=== PATIENT | female | born 1945 | race Caucasian/White ===

== ENCOUNTER → 2023-05-29 13:43 | Outpatient (REF) | payer OTHER, SELFPAY | LOC: HWWDC 13:43 | PROVIDERS: ATTENDING PHYSICIAN Physician Assistant | DX: Z12.31 Encounter for screening mammogram for malignant neoplasm of breast (principal) | CPT/HCPCS: 77063; 77067 ==

== ENCOUNTER → 2023-06-05 10:07 | Outpatient (REF) | payer OTHER, SELFPAY | LOC: WDC 10:07 | PROVIDERS: ATTENDING PHYSICIAN Physician Assistant | DX: R92.8 Other abnormal and inconclusive findings on diagnostic imaging of breast (principal) | CPT/HCPCS: 77065 ==

== ENCOUNTER → 2023-06-17 07:05 | Outpatient (REF) | payer OTHER, SELFPAY ==
--- NOTE | 2023-06-17 11:04 | OID.BR.INTR ---
[facility] Navigator - Initial
- -
Date of Contact: 06/17/23
Met with patient. Patient given written information on navigator services and support services available at [facility]. Will follow up as needed per protocol.
== END ==
LOC: WDC 07:05
PROVIDERS: ATTENDING PHYSICIAN Physician Assistant; FAMILY PHYSICIAN Family Medicine
DX: N63.20 Unspecified lump in the left breast, unspecified quadrant (principal)
CPT/HCPCS: 88305; 19081; 76098; 88341; 88342; 88360; A4648

== ENCOUNTER → 2023-07-17 08:03 | Outpatient (REF) | payer OTHER, SELFPAY | LOC: WDC 08:03 | PROVIDERS: ATTENDING PHYSICIAN Surgery; FAMILY PHYSICIAN Family Medicine | DX: D05.92 Unspecified type of carcinoma in situ of left breast (principal) | CPT/HCPCS: 19281; A4648 ==

== ENCOUNTER 2023-07-18 06:05 | Day surgery (SDC) | payer OTHER, SELFPAY ==
[2023-07-04 12:52] VITALS: BMI 44.9
[2023-07-04 13:50] LABS: Hematocrit 38.3 % (37.0-47.0); Hemoglobin 12.9 g/dL (12.0-16.0); Mean Corp Hgb Conc. 33.7 g/dL (33.0-37.0); Mean Corpuscular Hgb 30.8 pg (27.0-31.0); Mean Corpuscular Volume 91.4 fL (81.0-99.0); Mean Platelet Volume 9.9 fL (7.4-10.4); Platelet Count 261 10^3/uL (130-400); Red Blood Cell Count 4.19 10^6/uL (4.20-5.40); Red Cell Dist. Width 13.2 % (11.5-14.5)
[2023-07-04 14:13] LABS: ALT (SGPT) 30 U/L (0-35); AST (SGOT) 27 U/L (14-36); Albumin 4.3 g/dl (3.5-5.0); Alkaline Phosphatase 65 U/L (38-126); Blood Urea Nitrogen 24 mg/dl (7-17); Calcium 10.1 mg/dl (8.4-10.2); Carbon Dioxide 27 mmol/L (22-30); Chloride 99 mmol/L (98-107); Estimated Creatinine Clearance 52 ml/min; Glucose 114 mg/dl (70-99); Potassium 4.4 mmol/L (3.5-5.1); Sodium 134 mmol/L (135-145); Total Bilirubin 0.5 mg/dl (0.2-1.3); Total Protein 7.1 g/dl (6.3-8.2); eGFR 46.62
[2023-07-04 14:19] LABS: Prealbumin (Transthyretin) 26.8 mg/dl (17.6-36.0)
[2023-07-04 14:32] LABS: Vitamin D, 25-OH*** 75.2 ng/mL (30-80)
--- NOTE | 2023-07-07 14:59 | PTCARENOTE ---
Abnormal EKG on 07/04/23. Dr. Arevalo aware. No intervention needed.
[2023-07-18 06:18] VITALS: BMI 43.5
[2023-07-18 06:20] VITALS: BP 130/51
[2023-07-18 06:35] LABS: Glucose - Point of Care 127 mg/dl (70-99)
[2023-07-18] MEDS: LOVENOX 40 MG SC (06:38)
[2023-07-18] MEDS: TYLENOL 1000 MG PO (06:42)
[2023-07-18] MEDS: NORMOSOL-R 1000 IV (07:00)
[2023-07-18 08:40] VITALS: BP 112/44
[2023-07-18 08:55] VITALS: BP 94/50
[2023-07-18 08:58] LABS: Glucose - Point of Care 121 mg/dl (70-99)
[2023-07-18 09:10] VITALS: BP 116/50
[2023-07-18 09:20] VITALS: BP 136/74
== END 2023-07-18 09:32 | disposition home or self-care (01) ==
LOC: SDS 06:05
PROVIDERS: ATTENDING PHYSICIAN Surgery; FAMILY PHYSICIAN Family Medicine
DX: C50.912 Malignant neoplasm of unspecified site of left female breast (principal); Z17.0 Estrogen receptor positive status [ER+]
CPT/HCPCS: 19301; 88305; 88307; 36415; 76098; 80053; 82306; 82962; 84134; 85027; 88341; 88342; 88360; 93005; A4648

== ENCOUNTER → 2023-08-13 12:12 | Outpatient (REF) | payer OTHER, SELFPAY ==
[2023-08-13 14:25] LABS: ALT (SGPT) 28 U/L (0-35); AST (SGOT) 27 U/L (14-36); Albumin 4.7 g/dl (3.5-5.0); Alkaline Phosphatase 77 U/L (38-126); Blood Urea Nitrogen 26 mg/dl (7-17); Calcium 10.4 mg/dl (8.4-10.2); Carbon Dioxide 21 mmol/L (22-30); Chloride 102 mmol/L (98-107); Glucose 115 mg/dl (70-99); HDL Cholesterol 96 mg/dl; LDL Cholesterol, Calculated 91 mg/dl; Potassium 4.6 mmol/L (3.5-5.1); Sodium 136 mmol/L (135-145); Total Bilirubin 0.5 mg/dl (0.2-1.3); Total Cholesterol 218 mg/dl (50-199); Total Protein 7.7 g/dl (6.3-8.2); Triglyceride 157 mg/dl (10-149); Very Low Density Lipoprotein 31 mg/dl (0-30); eGFR 42.35
[2023-08-13 14:40] LABS: Free T4 1.75 ng/dl (0.78-2.19)
== END ==
LOC: REG 12:12
PROVIDERS: ATTENDING PHYSICIAN Nuclear Medicine Nuclear Cardiology
DX: I10 Essential (primary) hypertension (principal); Z79.899 Other long term (current) drug therapy
CPT/HCPCS: 36415; 80053; 80061; 84439; 84443

== ENCOUNTER → 2023-08-15 12:31 | Outpatient (REF) | payer OTHER, SELFPAY | LOC: HWRAD 12:31 | PROVIDERS: ATTENDING PHYSICIAN Obstetrics & Gynecology; FAMILY PHYSICIAN Family Medicine; OTHER PHYSICIAN Internal Medicine Hematology & Oncology; REFERRING PHYSICIAN Nuclear Medicine Nuclear Cardiology | DX: I10 Essential (primary) hypertension (principal); Z79.899 Other long term (current) drug therapy; Z78.0 Asymptomatic menopausal state | CPT/HCPCS: 71046; 77080 ==

== ENCOUNTER 2023-10-22 11:19 | Inpatient (IN) | payer OTHER, SELFPAY ==
[2023-10-21] VITALS (8 sets, daily range): BP systolic 104–213; BP diastolic 54–82; BMI 43.7
--- NOTE | 2023-10-21 12:05 | EDRN ---
Pt not cooperating with blood draw, unable to get the ordered labs other than the nasal swabs/
[2023-10-21 12:35] LABS: COVID-19 Antigen Positive (Negative)
--- NOTE | 2023-10-21 12:50 | ED.GENMED ---
History of Present Illness
General
Chief Complaint: Cold/Flu/URI Symptoms
Source: patient
Exam Limitations: none
Time Seen by Provider: 10/21/23 12:36
History of Present Illness
History of Present Illness:
Patient complaining of general pain aches some increased shortness of breath since yesterday. positive with a viral syndrome. Some slight cough. No sputum. Symptoms are moderate in nature. Complaining of significant weakness.
Past History
Past History
ED Past Medical History: Arrthythmia (Atrial fibrillation), GERD, HTN, Hypercholesterolemia, NIDDM, Hypothyroidism and Other (Obesity, Sleep apnea uses C-pap at home,m Cystitis)
ED Past Surgical History: Appendectomy, Cholecystectomy, Gynecological, Orthopedic (Right and left hip replacement, right knee replacement) and Tonsilectomy
Social History
Tobacco: Former smoker
Alcohol: None
Personal:
Living: with family
Employment: Retired
Family History
Family History: Other (Cancer)
Review of Systems
Review of Systems
All Other Systems: Not applicable
Constitutional: Reports fever and chills
Respiratory: Reports cough and trouble breathing
Cardiac: Reports no symptoms
Phy Exam
Physical Exam
Physical Exam:
GENERAL: Alert and oriented in no apparent distress. Generally weak
EYE: Orbits normal.
NECK: Supple
ENT: Pharynx without erythema
CARDIAC: Regular rate and rhythm without any obvious murmurs.
LUNGS: Decreased breath sounds diffusely. Occasional dry cough. Dry bibasilar rales at times
ABDOMEN: Soft, without focal tenderness or distention. Elevated BMI
NEUROLOGICAL: Alert and oriented , grossly non-focal
SKIN: Warm and dry, no rash or lesion, no discoloration, skin intact.
MUSCULOSKELETAL: No edema,no deformity.Good color
PSYCH: Normal and appropriate interaction.
Course
Orders/Labs/Results
Orders:
Orders
10/21/23 11:48
Electrocardiogram (*1) Urgent
Reason for Study: Other
Other Reason for Exam: Possible Sepsis
Cardiac Monitoring- Treatment ONCE
IV Insert/Care/Rem.- Treatment PRN
O2 Therapy [RESP] Urgent
Titrate/Wean O2 to maintain O2 sat greater than (%): 93
Special Instructions: TO MAINTAIN CONTINUOUS O2 SATS > OR = 93%
Pulse Ox/cont/shift [RESP] Urgent
Quantity: 1
Special Instructions: CONTINUOUS
10/21/23 11:49
EKG- Treatment ONCE
10/21/23 11:56
COVID-19 Antigen Urgent
Source: Nasal Swab
Influenza A+B Rapid Molecular Urgent
MAYNOR Source: Nasal Swab
Specimen Description:
10/21/23 12:45
Acetaminophen [Tylenol] 1,000 mg PO NOW STA
CXR Port [CR Chest Portable - 1 View] Urgent
Comment:
Reason For Exam: sob. covid pos
Reason Study Needs to be Portable: Other
10/21/23 12:46
0.9% Sodium Chloride 500 ml [Nss] 500 ml IV BOLUS
10/21/23 12:57
Complete Blood Count/With Diff Urgent
Lactic Acid Q4H
Comment: ON ICE, CANCEL 2ND ORDER IF FIRST LACTIC ACID LEVEL <2
10/21/23 14:16
Comprehensive Metabolic Panel Routine
10/21/23 15:32
Admit/Transfer Patient As Directed
Co-Sign Provider:
Level of Care: Observation services
Assign to:: Medical/Surgical
Physician / Group: Carter Miguel
Diagnosis: COVID 19 viral infection, Weakness
PRN Pain Medication Management As Directed
May give lesser potent ordered pain med per pt: Yes
preference::
Protocol:: Medication orders for pain may be administered in a
manner that supports deferring to patient preference
when the pt is:
- Requesting an ordered lesser potent pain medication.
Least to most potent pain medications are defined
as: acetaminophen < NSAID < tramadol < opioids
(morphine, oxycodone, hydromorphone).
- Requesting a lesser dose of the same medication IF
ORDERED.
- Requesting a less intrusive route of administration
if both routes are prescribed by the provider (PO <
IV).
10/21/23 15:36
Code Status As Directed
Resuscitation Status: Full Code
10/21/23 15:59
Lactic Acid Q4H
Comment: ON ICE, CANCEL 2ND ORDER IF FIRST LACTIC ACID LEVEL <2
10/21/23 16:25
Dextrose 50%-Water [Dextrose 50% Syringe] 12.5 grams IV [id number] PRN
Glucagon [GlucaGen] 1 mg IM PRN PRN
Guaifenesin/Dextromethorphan [Robitussin Dm] 10 ml PO Q4HPRN PRN
10/21/23 16:25
Activity As Directed
Activity Level: With Assistance
Bedside Glucose Monitoring As Directed
Frequency: AC&HS
Additional Instructions:: Change to q6h if pt on TPN, tube feeding or not eating
Intake/ Output As Directed
Frequency: Per unit guidelines
Precautions As Directed
Type of Precautions: Droplet
Contact
Vital Signs As Directed
Frequency: Per unit guidelines
Weight As Directed
Frequency: Once
Comment: on admission
Pulse Ox/cont/shift [RESP] Routine
Quantity: 1
Special Instructions: continuous pulse oximetry
Ot Eval And Treat Routine
Pt Eval And Treat Routine
Activity Level: With Assistance
10/21/23 16:30
Insulin Aspart Corrective Low [Novolog Flexpen-Low Resistance] See Protocol SC AC
10/21/23 17:00
METFORMIN HCl [Glucophage] 500 mg PO BID AT 0800,1700
Metoprolol [Lopressor] 50 mg PO BID AT 0800,1600
10/21/23 18:00
Rivaroxaban [Xarelto] 20 mg PO QPM
10/21/23 19:00
Acetaminophen [Tylenol] 650 mg PO Q4HPRN PRN
10/21/23 20:00
HydrALAZINE [Apresoline] 50 mg PO BID
Nirmatrelvir/Ritonavir [Paxlovid 2X150 mg-100 mg Dose Pack] 1 dose PO BID
10/21/23 22:00
Atorvastatin [Lipitor] 10 mg PO HS
Losartan [Cozaar] 100 mg PO HS
Melatonin 10 mg PO HS
Metoprolol [Lopressor] 25 mg PO HS
10/22/23 06:00
Basic Metabolic Panel IN AM
Complete Blood Count/With Diff IN AM
Glycohemoglobin (HgbA1c) IN AM
Levothyroxine [Synthroid] 100 mcg PO DAILY @ 0600
10/22/23 08:00
Cholecalciferol (Vitamin D3) [VITAMIN D3 (cholecalciferol)] 125 mcg PO DAILY
Cyanocobalamin [Vitamin B-12] 5,000 mcg PO Q72H
Furosemide [Lasix] 40 mg PO DAILY
Zinc Sulfate 220 mg PO DAILY
10/22/23 12:00
Amiodarone [Pacerone] 100 mg PO NOON
Qoowxgkqq-Qtv-Cbzm [Femara] 2.5 mg PO NOON
Potassium Chloride [KCl] 20 meq PO NOON
10/23/23 06:00
Basic Metabolic Panel IN AM
Complete Blood Count/With Diff IN AM
Abnormal Lab Results
10/21/23 10/21/23 10/21/23
11:56 12:57 14:16
RBC 4.19 L 10^6/uL
(4.20-5.40)
Absolute Neuts (auto) 8.0 H 10^3/uL
(1.4-6.5)
Absolute Lymphs (auto) 0.7 L 10^3/uL
(1.2-3.4)
Neutrophils % 84.9 H %
(42.2-75.2)
Lymphocytes % 7.3 L %
(20.5-51.1)
Sodium 134 L mmol/L
(135-145)
BUN 23 H mg/dl
(7-17)
Creatinine 1.1 H mg/dL
(0.6-1.0)
Glucose 118 H mg/dl
(70-99)
Lactic Acid 2.6 H mmol/L
(0.7-2.0)
SARS-CoV-2 Antigen Positive A
(Negative)
10/21/23 12:57
10/21/23 14:16
Vital Signs
Initial and Last Documented VS:
Initial Vital Signs
Temp Pulse Resp BP Pulse Ox
100.5 F H 87 18 213/82 93
10/21/23 11:44 10/21/23 11:44 10/21/23 11:44 10/21/23 11:44 10/21/23 11:44
Last Documented Vital Signs
Temp Pulse Resp BP Pulse Ox
98.3 F 75 20 182/69 94
10/21/23 19:08 10/21/23 19:08 10/21/23 19:08 10/21/23 19:08 10/21/23 19:08
*Radiology
Radiology exam reviewed: preliminary read by ED provider (Negative) and radiology read reviewed (Negative)
*Pulse Oximetry
Patient hypoxic: no
*Critical Care Note
Total Time (30-74mins, 75-104mins- exclusive of procedures): Not Applicable
Data Reviewed
Review of Other/Old Records Reveals: Labs and Records
Update Note
Update Note:
Patient clinically stable and nontoxic. However generally very weak. Does not feel she can handle issues at home given her severe weakness. Will be admitted for further care
ED Attending Note
-
Portions of this chart may have been created with voice recognition software.� Occasional wrong word or��sound alike� substitutions may have occurred due to the inherent limitations of voice recognition software.
Discharge Plan
Departure
Patient Disposition: Admit
Date of Disposition: 10/21/23
Time of Disposition: 14:33
Presentation/result/management discussed w/ accepting MD/DO: Hospitalist
Discharge Problem:
COVID infection COVID infection, Severe weakness, Multiple medical issues
Interventions
Interventions:
*Risk Screen - Suicide Last Done: 10/21/23 11:44
*General Assessment Last Done: 10/21/23 11:44
*Neglect/Abuse Screening Last Done: 10/21/23 11:44
ED- Fall Risk Assessment Last Done: 10/21/23 15:00
*ED COVID-19 Vaccine History Last Done: 10/21/23 16:26
*Nursing Disposition Last Done: 10/21/23 16:26
ED- Pulmonary Assessment Last Done: 10/21/23 12:50
Discharge Date and Time
Discharge Date/Time: 10/21/23 16:26
[2023-10-21] MEDS: TYLENOL 1000 MG PO (13:00)
[2023-10-21 13:16] LABS: % Basophils 0.5 % (0-2); % Eosinophils 0.3 % (0-6); % Immature Granulocytes 0.4 % (0-0.5); % Lymphocytes 7.3 % (20.5-51.1); % Monocytes 6.6 % (1.7-9.3); % Neutrophils 84.9 % (42.2-75.2); Absolute Basophils 0.1 10^3/uL (0-0.2); Absolute Lymphocytes 0.7 10^3/uL (1.2-3.4); Absolute Monocytes 0.6 10^3/uL (0.1-0.6); Hematocrit 37.6 % (37.0-47.0); Hemoglobin 12.9 g/dL (12.0-16.0); Mean Corp Hgb Conc. 34.3 g/dL (33.0-37.0); Mean Corpuscular Hgb 30.8 pg (27.0-31.0); Mean Corpuscular Volume 89.7 fL (81.0-99.0); Mean Platelet Volume 9.9 fL (7.4-10.4); Nucleated Red Blood Cells % 0 %; Platelet Count 265 10^3/uL (130-400); Red Blood Cell Count 4.19 10^6/uL (4.20-5.40); Red Cell Dist. Width 13.4 % (11.5-14.5); White Blood Cell Count 9.4 10^3/uL (4.8-10.8)
[2023-10-21 13:29] LABS: Lactic Acid 2.6 mmol/L (0.7-2.0)
[2023-10-21] MEDS: NSS 500 IV (13:36)
--- NOTE | 2023-10-21 13:56 | EDRN ---
this CENTER DIRECTOR LEAD TEACHER contacted lab due to this pts ordered CMP not showing received by lab via [facility] even though all blood tubes were collected and sent to lab at the same time in the SAME Biohazard bag. Per educational technologist, the pts CMP blood tube could not be
located and new labs will need to be redrawn. the pt was a difficult stick and has already been stuck once in ER triage, twice by this CENTER DIRECTOR LEAD TEACHER, and once by IV team RN. Now, due to lab not being able to locate this pts blood tube, the pt will have to
be stuck again to obtain ordered CMP. this CENTER DIRECTOR LEAD TEACHER notified ER Director and ER Dr Lowe were of above.
[2023-10-21 14:50] LABS: ALT (SGPT) 25 U/L (0-35); AST (SGOT) 28 U/L (14-36); Albumin 4.3 g/dl (3.5-5.0); Alkaline Phosphatase 59 U/L (38-126); Blood Urea Nitrogen 23 mg/dl (7-17); Calcium 9.5 mg/dl (8.4-10.2); Carbon Dioxide 24 mmol/L (22-30); Chloride 102 mmol/L (98-107); Estimated Creatinine Clearance 55 ml/min; Glucose 118 mg/dl (70-99); Potassium 4.2 mmol/L (3.5-5.1); Sodium 134 mmol/L (135-145); Total Bilirubin 0.6 mg/dl (0.2-1.3); Total Protein 6.7 g/dl (6.3-8.2); eGFR 51.75
--- NOTE | 2023-10-21 15:31 | HPS.HSE ---
Addendum entered and electronically signed by Carter Miguel MD 10/22/23 08:45:
Paxlovid was discontinued after discussion with pharmacy for as Paxlovid can cause increased Amiodarone level causing QTc prolongation/cardiac athymias/AV block
Patient switched to IV dexamethasone 6mg/d instead.
Original Note:
Family Physician
-
Family Physician: Bravo Isidro
Chief Complaint
-
Shortness of breath, generalized weakness
History of Present Illness
Patient is 77-year-old female with past medical history of left breast cancer status postmastectomy on tamoxifen/letrozole therapy, paroxysmal h atrial fibrillation, diastolic heart failure, essential hypertension, hyperlipidemia,
xuq-cvrcley-wznwxgiyj diabetes mellitus, hypothyroidism, obesity, sleep apnea not compliant to CPAP, history of appendectomy/cholecystectomy, bilateral hip replacement came to ER for having new onset of shortness of breath and generalized weakness.
Patient from Friday feeling unwell and having some sore throat/generalized body ache and slowly started to developing dyspnea. Patient had somewhat of similar symptoms in spouse is worried about having COVID/flu. Patient came to ER for further
assessment as symptoms are progressing and was tested positive for COVID. Patient able to walk around although balance severely off and at points noted to be falling backward in ER. Patient also visibly dyspneic although not hypoxic. Reported
some nonproductive cough. No fever noted. Patient was also having some nausea although no vomiting diarrhea.
Medical History
Past Medical History
Past Medical History: Reports Other
Additional Past Medical History:
left breast cancer status postmastectomy on tamoxifen/letrozole therapy, paroxysmal h atrial fibrillation, diastolic heart failure, essential hypertension, hyperlipidemia, uks-jtzrppm-rhnqcxnhj diabetes mellitus, hypothyroidism, obesity, sleep apnea
not compliant to CPAP, history of appendectomy/cholecystectomy, bilateral hip replacement
Past Surgical History: Reports Other
Social History
Tobacco: Former Smoker
Alcohol: None
Drug: None
Personal:
Living: With Family
Family History
Family History: Not pertinent
Allergies / Home Medications
Allergies reflects when Allergies were last updated in [facility].
Home Medications with original date entered in [facility]
Allergy/Medication List:
Allergies
Allergy/AdvReac Type Severity Reaction Status Date / Time
adhesive Allergy Rash Verified 10/21/23 11:48
alcohol Allergy SNEEZE Verified 10/21/23 11:48
banana [Banana] Allergy THROAT Verified 10/21/23 11:48
SWELLS,EYES
TEAR
milk Allergy THROAT Verified 10/21/23 11:48
SWELLS,EYES
TEAR
wheat Allergy THROAT Verified 10/21/23 11:48
SWELLS,EYES
TEAR
azithromycin AdvReac Nausea Verified 10/21/23 11:48
Grapes Allergy Throat Uncoded 07/18/23 06:09
swelling
vinegar Allergy cough,sneeze.'attacks Uncoded 07/18/23 06:09
throat'
Home Medications
levothyroxine 100 mcg tablet 100 mcg PO DAILY Thyroid 07/19/12
metformin 500 mg tablet 500 mg PO BIDWMEAL Diabetes 07/19/12
rivaroxaban 20 mg tablet (Xarelto) 20 mg PO QPM Blood clot prevention/tx 12/10/18
biotin 1 mg tablet 1 mg PO DAILY Supplement 05/25/19
furosemide 40 mg tablet 40 mg PO DAILY Fluid retention/Swelling 05/25/19
melatonin 10 mg tablet 10 mg PO HS 05/25/19
losartan 50 mg tablet 100 mg PO HS Blood pressure 01/28/21
metoprolol tartrate 50 mg tablet 50 mg PO BID Heart disease/condition 01/28/21
hydralazine 25 mg tablet 50 mg PO BID 07/22/21
Celery Seed 3 tab PO DAILY 07/11/23
L-Glutathione 1 tab PO DAILY 07/11/23
Marshmallow Root 1 tab PO DAILY 07/11/23
Jewell 3 2 cap PO DAILY 07/11/23
Women Prebiotic With Cranberry 2 tab PO DAILY 07/11/23
cholecalciferol (vitamin D3) 125 mcg (5,000 unit) tablet (Vitamin D3) 125 mcg PO DAILY 07/11/23
keratin 1 dose PO DAILY 07/11/23
vitamin K2 100 mcg capsule 100 mcg PO DAILY 07/11/23
amiodarone 100 mg tablet 100 mg PO NOON 10/21/23
calcium carbonate,citrate-magnesium oxide 200 mg calcium-50 mg tablet (CalMag Thins) 1 tab PO HS 10/21/23
clotrimazole-betamethasone 1 %-0.05 % topical cream 1 applic topical BIDPRN PRN vaginal 10/21/23
cyanocobalamin (vitamin B-12) 5,000 mcg sublingual tablet 5,000 mcg sublingual Q72H 10/21/23
letrozole 2.5 mg tablet 2.5 mg PO NOON 10/21/23
magnesium oxide 200 mg PO DAILY 10/21/23
metoprolol tartrate 25 mg tablet 25 mg PO HS 10/21/23
milk thistle 500 mg capsule 1,000 mg PO DAILY 10/21/23
potassium chloride 20 mEq tablet,extended release(part/cryst) (Klor-Con M) 20 meq PO NOON 10/21/23
simvastatin 10 mg tablet 10 mg PO HS 10/21/23
therapeutic multivitamin 1 tab PO DAILY 10/21/23
vitamins A,C,P-zlew-leouyy 4,296 mcg-226 mg-90 mg capsule (PreserVision AREDS) 1 cap PO DAILY 10/21/23
zinc sulfate 50 mg zinc (220 mg) tablet 50 mg PO DAILY 10/21/23
Review of Systems
-
A 12 point ROS was completed and negative except as noted: Yes
Physical Exam
Vital Signs
Vital Signs
Temp Pulse Resp BP Pulse Ox
98.8 F 74 15 155/57 94
10/21/23 14:19 10/21/23 15:00 10/21/23 15:00 10/21/23 15:00 10/21/23 15:00
Physical Exam
General: No Apparent Distress
HEENT: Atraumatic
Respiratory: Rhonchi
Cardiac: S1/S2 and Regular Rhythm; No Murmur or Rub
GI: Soft, Non Tender and Non Distended; No Organomegaly
Musculoskeletal: No Edema
Skin: No Rash
Neuro: Awake, Alert and Nonfocal/grossly intact
Laboratory Results
-
10/21/23 12:57
10/21/23 14:16
Laboratory Results
Lactic Acid 2.6 mmol/L (0.7-2.0) H 10/21/23 12:57
Total Bilirubin 0.6 mg/dl (0.2-1.3) 10/21/23 14:16
AST 28 U/L (14-36) 10/21/23 14:16
ALT 25 U/L (0-35) 10/21/23 14:16
Alkaline Phosphatase 59 U/L (38-126) 10/21/23 14:16
Data Reviewed
-
Lab Data: Labs Reviewed by me and Discussed with Patient
Impression/Plan
-
1. COVID 19 Viral infection
Generalized weakness
-Presented for COVID-related body aches/sore throat/dyspnea
-CXR did not show any major abnormalities
-No signs/concern of superimposed bacterial pneumonia
-Patient not requiring any oxygen in ER, continue monitoring
-Start patient on Paxlovid therapy
-Maintain on symptomatic care for COVID-related symptoms
-Patient balance significantly off and at risk of fall, PT OT evaluation ordered
2. NIDDM
-Continue on metformin and ISS
3. Left breast cancer s/p lumpectomy
-maintain on regimen of tamoxifen/letrozole
4. Paroxysmal h atrial fibrillation
-maintain on xarelto and metoprolol
5. Diastolic HF
-no signs of volume overload
-f/us with Dr Morgan for afib/HF managment
-maintain on home dose lasix
-stop further IVF
essential hypertension
hyperlipidemia
hypothyroidism
obesity, sleep apnea not compliant to CPAP
history of appendectomy/cholecystectomy
bilateral hip replacement
Full code
Obs admit
Total time spent : 78 mins
I personally saw and examined the patient.
I have reviewed all diagnostic interpretations and treatment plans as written.
Time includes patient management by me, time spent at the patients bedside, time to review lab and imaging results, discussing patient care, documentation in the medical record, and time spent with the family or caregiver and discussing care plan
with RN/Consultants.
[2023-10-21 16:30] LABS: Lactic Acid 1.5 mmol/L (0.7-2.0)
[2023-10-21] MEDS: GLUCOPHAGE 500 MG PO (17:59)
[2023-10-21] MEDS: XARELTO 20 MG PO (17:59)
[2023-10-21] MEDS: LOPRESSOR 50 MG PO (17:59)
[2023-10-21] MEDS: NOVOLOG FLEXPEN-LOW RESISTANCE SC (17:59)
[2023-10-21 18:00] LABS: Glucose - Point of Care 124 mg/dl (70-99)
[2023-10-21] MEDS: DECADRON 6 MG IV (18:01)
--- NOTE | 2023-10-21 18:31 | PTCARENOTE ---
recieved pt via stretcher from ED, marilee precautions, oriented to the unit, able to use the bathroom, with assist of 1 and single point cane, call stephen within reach.
[2023-10-21] MEDS: TYLENOL 650 MG PO (20:42)
[2023-10-21] MEDS: DESENEX/MITRAZOL/ZEASORB 1 APPLIC TOPICAL (20:42)
[2023-10-21] MEDS: APRESOLINE 50 MG PO (20:42)
[2023-10-21 21:31] LABS: Glucose - Point of Care 167 mg/dl (70-99)
[2023-10-21] MEDS: COZAAR 100 MG PO (23:09)
[2023-10-21] MEDS: LIPITOR 10 MG PO (23:09)
[2023-10-21] MEDS: LOPRESSOR 25 MG PO (23:10)
[2023-10-21] MEDS: MELATONIN 10 MG PO (23:10)
[2023-10-22] VITALS (9 sets, daily range): BP systolic 138–163; BP diastolic 56–65; PULSE 67; O2SAT 93–95; BMI 43.4
[2023-10-22] MEDS: SYNTHROID 100 MCG PO (05:19)
[2023-10-22 07:25] LABS: Glucose - Point of Care 141 mg/dl (70-99)
[2023-10-22] MEDS: NOVOLOG FLEXPEN-LOW RESISTANCE SC (07:41)
[2023-10-22 08:28] LABS: % Basophils 0.2 % (0-2); % Immature Granulocytes 0.4 % (0-0.5); % Lymphocytes 11.7 % (20.5-51.1); % Monocytes 7.7 % (1.7-9.3); Absolute Monocytes 0.6 10^3/uL (0.1-0.6); Absolute Neutrophils 6.6 10^3/uL (1.4-6.5); Hematocrit 35.7 % (37.0-47.0); Hemoglobin 12.3 g/dL (12.0-16.0); Mean Corp Hgb Conc. 34.5 g/dL (33.0-37.0); Mean Corpuscular Hgb 31.2 pg (27.0-31.0); Mean Corpuscular Volume 90.6 fL (81.0-99.0); Nucleated Red Blood Cells % 0 %; Platelet Count 236 10^3/uL (130-400); Red Blood Cell Count 3.94 10^6/uL (4.20-5.40); Red Cell Dist. Width 13.7 % (11.5-14.5); White Blood Cell Count 8.3 10^3/uL (4.8-10.8)
[2023-10-22 09:00] LABS: Blood Urea Nitrogen 18 mg/dl (7-17); Calcium 9.5 mg/dl (8.4-10.2); Carbon Dioxide 22 mmol/L (22-30); Chloride 104 mmol/L (98-107); Estimated Creatinine Clearance 61 ml/min; Glucose 127 mg/dl (70-99); Potassium 4.1 mmol/L (3.5-5.1); Sodium 136 mmol/L (135-145); eGFR 58.02
[2023-10-22] MEDS: VITAMIN B-12 5000 MCG PO (09:01)
[2023-10-22] MEDS: VITAMIN D3 (cholecalciferol) 125 MCG PO (09:02)
[2023-10-22] MEDS: APRESOLINE 50 MG PO ×2 (09:02→20:36)
[2023-10-22] MEDS: LOPRESSOR 50 MG PO ×2 (09:02→17:07)
[2023-10-22] MEDS: ZINC SULFATE 220 MG PO (09:02)
[2023-10-22] MEDS: GLUCOPHAGE 500 MG PO ×2 (09:02→17:07)
[2023-10-22] MEDS: LASIX 40 MG PO (09:03)
[2023-10-22] MEDS: DECADRON 6 MG IV (09:03)
[2023-10-22] MEDS: DESENEX/MITRAZOL/ZEASORB 1 APPLIC TOPICAL ×2 (09:10→20:37)
[2023-10-22 11:58] LABS: Glycohemoglobin (HgbA1c) 6.1 % (4.0-5.6)
--- NOTE | 2023-10-22 12:47 | W.PN.HOSP.TC ---
Today's Communication/Plan
-
PT/OT eval
discharge planning
Assessment / Plan
Assessment / Plan
1. COVID 19 Viral infection
Generalized weakness
-Presented for COVID-related body aches/sore throat/dyspnea
-CXR did not show any major abnormalities
-No signs/concern of superimposed bacterial pneumonia
-Patient not requiring any oxygen in ER, continue monitoring
-Maintain on symptomatic care for COVID-related symptoms
-PT?OT evaluation and placement if patient qualifies
-Maintain on IV decadron 6mg/d for now.
2. NIDDM
-Continue on metformin and ISS
3. Left breast cancer s/p lumpectomy
-maintain on regimen of tamoxifen/letrozole
4. Paroxysmal h atrial fibrillation
-maintain on xarelto and metoprolol
5. Diastolic HF
-no signs of volume overload
-f/us with Dr Morgan for afib/HF managment
-maintain on home dose lasix
-stop further IVF
essential hypertension
hyperlipidemia
hypothyroidism
obesity, sleep apnea not compliant to CPAP
history of appendectomy/cholecystectomy
bilateral hip replacement
Full code
Anticipated Discharge: Within 24 hours
Subjective/Interval History
-
Date of Service: October 22, 2023
Continues to feel weak/fatigued
Not hypoxic
No other acute issues reported
Objective Data
-
Labs:
Laboratory Results
10/22/23
07:40
WBC 8.3
Hgb 12.3
Hct 35.7 L
Plt Count 236
Sodium 136
Potassium 4.1
Chloride 104
Carbon Dioxide 22
BUN 18 H
Creatinine 1.0
Glucose 127 H
Calcium 9.5
Vital Signs:
Vital Signs
Temp Pulse Resp BP Pulse Ox
99.4 F 64 18 152/56 94
10/22/23 11:10 10/22/23 11:10 10/22/23 11:10 10/22/23 11:10 10/22/23 11:10
I&O
10/21/23 10/22/23 10/23/23
06:59 06:59 06:59
Intake Total 600 / 600
Balance 600 / 600
Review of Systems
-
Respiratory: Reports Cough
Cardiac: Reports No Symptoms
Abdomen/GI: Reports No Symptoms
Physical Exam
-
General: Comfortable
HEENT: Negative Oxygen
Respiratory: Wheezes
Cardiac: Regular Rhythm and S1/S2; Negative Murmur or Rub
GI: Soft, Nontender and Nondistended
Musculoskeletal: No Edema
Neuro: Awake, Alert, Oriented, No Motor Deficits and Nonfocal/Grossly Intact
Psych: Calm
[2023-10-22 12:56] LABS: Glucose - Point of Care 155 mg/dl (70-99)
[2023-10-22] MEDS: PACERONE 100 MG PO (13:00)
[2023-10-22] MEDS: TYLENOL 650 MG PO ×3 (13:05→22:51)
[2023-10-22] MEDS: FEMARA 2.5 MG PO (13:06)
[2023-10-22] MEDS: ROBITUSSIN DM 10 ML PO (13:06)
[2023-10-22] MEDS: KCL 20 MEQ PO (13:06)
--- NOTE | 2023-10-22 13:17 | CM ---
Addendum entered by Marta Lira 10/22/23 13:24:
clarification patient now transitioned to INP status and patient and made aware
Original Note:
Patient on COVID restrictions. CM called and spoke with patient . Patient lives with him in a 2 story home with son. Patient has been independent on the stairs prior to admission and he assisted with 'laborious' tasks. Patient has a walker,
and cane at home. PCP is Dr. Nelson and they use the [facility]. Patient has had a CPAP at home previously. Patient and patient on phone updated that patient was not transitioned from OBS to INP and PT recommending SNF placement.
Patient and patient indicated that they would prefer patient to go home with home VN; preferably [facility] to provide supports. CM will continue to follow for discharge planning needs.
Plan; home with VN; pending [facility] vs SNF
[2023-10-22] MEDS: NOVOLOG FLEXPEN-LOW RESISTANCE 1 UNITS SC ×2 (13:21→17:17)
--- NOTE | 2023-10-22 15:08 | VNURNOTE ---
Chart reviewed. Reached out to patient's spouse, Hansel, to explain [facility] services. Left a message.
[2023-10-22] MEDS: XARELTO 20 MG PO (17:07)
[2023-10-22 17:16] LABS: Glucose - Point of Care 153 mg/dl (70-99)
[2023-10-22 21:22] LABS: Glucose - Point of Care 130 mg/dl (70-99)
[2023-10-22] MEDS: COZAAR 100 MG PO (22:50)
[2023-10-22] MEDS: LOPRESSOR 25 MG PO (22:50)
[2023-10-22] MEDS: LIPITOR 10 MG PO (22:50)
[2023-10-22] MEDS: MELATONIN 10 MG PO (22:51)
[2023-10-23] MEDS: ROBITUSSIN DM 10 ML PO (02:53)
[2023-10-23 03:21] VITALS: BP 164/66
[2023-10-23 05:18] VITALS: BMI 43.4
[2023-10-23] MEDS: SYNTHROID 100 MCG PO (05:34)
[2023-10-23] MEDS: TYLENOL 650 MG PO (05:37)
[2023-10-23 07:15] VITALS: BP 159/65
[2023-10-23] MEDS: LASIX 40 MG PO (08:53)
[2023-10-23] MEDS: VITAMIN D3 (cholecalciferol) 125 MCG PO (08:53)
[2023-10-23] MEDS: LOPRESSOR 50 MG PO (08:53)
[2023-10-23] MEDS: GLUCOPHAGE 500 MG PO (08:54)
[2023-10-23] MEDS: APRESOLINE 50 MG PO (08:54)
[2023-10-23] MEDS: DESENEX/MITRAZOL/ZEASORB 1 APPLIC TOPICAL (08:54)
[2023-10-23] MEDS: DECADRON 6 MG IV (08:54)
[2023-10-23] MEDS: ZINC SULFATE 220 MG PO (08:54)
[2023-10-23 08:57] LABS: Glucose - Point of Care 116 mg/dl (70-99)
[2023-10-23] MEDS: NOVOLOG FLEXPEN-LOW RESISTANCE SC (09:00)
--- NOTE | 2023-10-23 09:37 | VNURNOTE ---
Second attempt to reach spouse to explain VN services. Left message. Will follow hospital course. Per CM notes, VN v. SNF. VN Referral placed in [facility].
--- NOTE | 2023-10-23 11:27 | CM ---
Addendum entered by Ashleigh Gallegos 10/23/23 11:48:
Spoke with patient's , Jose Manuel, who confirmed he would be picking his up. He was given the unit's number so he could make them aware he was on his way. He would like her to be transported downstairs, as he'll be waiting in his car there.
CM informed Jose Manuel that [facility] had attempted to call him with no success. [facility] shared that she would like liaison know to call him immediately after call was completed with Jose Manuel. He verbalized understanding.
[facility] also informed Jose Manuel that VN would like someone with for additional support. Jose Manuel confirmed he would be home with once she is discharged from hospital.
[facility] completed call and then tiger texted Pratima [facility] liaison that Jose Manuel would be waiting for her call.
Addendum entered by Ashleigh Gallegos 10/23/23 11:42:
Pratima, liaison with [facility] confirmed that she placed a referral. [facility] went into room and explained IMM. Patient signed. Copy given to patient, and original placed on chart.
Original Note:
CM reviewed patient's chart. Spoke with patient and introduced self and role. Patient chose [facility] for visiting nurses services at home. [facility] liaison, Pratima, made aware. Patient confirmed that her would provide transportation upon discharge.
DISCHARGE DISPOSITION:
Home with and [facility]
[2023-10-23] MEDS: PACERONE 100 MG PO (12:29)
[2023-10-23] MEDS: KCL 20 MEQ PO (12:29)
[2023-10-23] MEDS: FEMARA 2.5 MG PO (12:29)
[2023-10-23 12:31] LABS: Glucose - Point of Care 159 mg/dl (70-99)
[2023-10-23] MEDS: NOVOLOG FLEXPEN-LOW RESISTANCE 1 UNITS SC (12:33)
--- NOTE | 2023-10-23 12:43 | W.PN.HOSP.TC ---
Addendum entered and electronically signed by Carter Miguel MD 10/25/23 09:58:
Add on to diagnosis list;
CKD stage IIIA- cr close to baseline
Original Note:
Today's Communication/Plan
-
d/c home with HH
Assessment / Plan
Assessment / Plan
1. COVID 19 Viral infection
Generalized weakness
-Presented for COVID-related body aches/sore throat/dyspnea
-CXR did not show any major abnormalities
-No signs/concern of superimposed bacterial pneumonia
-Patient not requiring any oxygen in ER, continue monitoring
-Maintain on symptomatic care for COVID-related symptoms
-Maintain on IV Decadron 6mg/d for now. Paxlovid and amiodarone has QTc prolonging problems
2. NIDDM
-Continue on metformin and ISS
3. Left breast cancer s/p lumpectomy
-maintain on regimen of tamoxifen/letrozole
4. Paroxysmal h atrial fibrillation
-maintain on xarelto and metoprolol
5. Diastolic HF
-no signs of volume overload
-f/us with Dr Morgan for afib/HF managment
-maintain on home dose lasix
-stop further IVF
essential hypertension
hyperlipidemia
hypothyroidism
obesity, sleep apnea not compliant to CPAP
history of appendectomy/cholecystectomy
bilateral hip replacement
Full code
Anticipated Discharge: Today
Subjective/Interval History
-
Date of Service: October 23, 2023
have cough and bilateral flank pain
afebrile
Objective Data
-
Vital Signs:
Vital Signs
Temp Pulse Resp BP Pulse Ox
98.8 F 67 18 161/66 98
10/23/23 07:15 10/23/23 12:29 10/23/23 07:15 10/23/23 12:29 10/23/23 07:15
I&O
10/22/23 10/23/23 10/24/23
06:59 06:59 06:59
Intake Total 600 / 600 1080 / 1080
Balance 600 / 600 1080 / 1080
Review of Systems
-
Respiratory: Reports No Symptoms
Cardiac: Reports No Symptoms
Abdomen/GI: Reports No Symptoms
Physical Exam
-
General: Comfortable
HEENT: Negative Oxygen
Respiratory: Clear to Auscultation
Cardiac: Regular Rhythm and S1/S2; Negative Murmur or Rub
GI: Soft, Nontender and Nondistended
Musculoskeletal: No Edema
Neuro: Awake, Alert, Oriented, No Motor Deficits and Nonfocal/Grossly Intact
Psych: Calm
--- NOTE | 2023-10-23 13:15 | VNURNOTE ---
Attempted to call spouse at home and on cell, no answer either number. Called patient in her room. Explained [facility] services, frequency of visits, purpose. She is agreeable and understands [facility] will contact her within a few days from [place]. Referral
in [facility].
--- NOTE | 2023-10-23 14:32 | PN.CDI ---
CDI
- -
CDI:
Physician Documentation Request
Admit Date: 10/22/23 11:19
Dear Doctor Lamont,
Please review the following and provide your response in the progress notes.
Clinical Indicators:
- per H&P, no documented history renal history
- Renal function as follows
Laboratory Tests
10/21/23 10/22/23
14:16 07:40
Creatinine 1.1 H 1.0
eGFR 51.75 58.02
Please clarify which of the following accurately represents the patient's renal status:
CKD 2
CKD 3
Other
Criteria for BLADE*
1 Increase in serum creatinine by > or = to 0.3 mg/dL (> or = to 26.5 micromol/L) within 48 hours, OR
2 Increase in serum creatinine to > or = to 1.5 times baseline, which is known or presumed to have occurred within 7 days, OR
3 Urine volume < 0.5 nL/kg/hour for six hours
Stages of Chronic Kidney Disease*
Level Description GFR
G1 Normal or High >90
G2 Mildly decreased 60-89
G3a Mildly to moderately decreased 45-59
G3b Moderately to severely decreased 30-44
G4 Severely decreased 15-29
G5 Kidney failure <15
Use of terms such as suspected, likely, concern for, or probable (associated with a specific diagnosis that is being evaluated, monitored, or treated as if it exists) are acceptable and can be coded in the inpatient setting, when documented at the
time of discharge.
Thank you,
Evelyn Chin RN
CDI Specialist
Please use your independent medical judgment in providing your response.
*Source: Kidney Disease: Improving Global Outcomes (KDIGO) 2012
--- NOTE | 2023-10-24 14:15 | W.DCSUMMARY ---
Discharge Summary
Discharge Data
Date of Admission: 10/22/23
Date of Discharge: 10/23/23
-
Pending Results: No
Hospital Course
Discharging Physician : Dr Carter Miguel
Disposition : Home with home health
Primary care physician : Dr Bravo Isidro
Principal Discharge diagnosis :
COVID-19 viral infection
Generalized weakness
Chronic Discharge diagnosis :
Tcj-[id number]-[id number] diabetes mellitus
Left breast cancer s/p lumpectomy
Paroxysmal atrial fibrillation
Chronic diastolic congestive heart failure
Essential hypertension
Hyperlipidemia
Hypothyroidism
Obstructive sleep apnea
History of appendectomy/cholecystectomy
Bilateral hip replacement
Hospital Course :
Patient is 77-year-old female with above-mentioned past medical history came to ER for having new onset of generalized weakness and dyspnea. Patient spouse had somewhat similar symptoms and clinically concerned of having COVID. Patient was checked
in ER when was found to be COVID-positive. Patient did not have any associated hypoxia. Chest x-ray was relatively clear and no superimposed bacterial pneumonia. Patient was started on IV Decadron as cannot be started on Paxlovid due to
interaction with Eliquis. Patient was evaluated by physical therapy who deemed patient appropriate for snf facility rehab although patient preferred to go home with home care.
Important imaging findings :
None
Procedure findings :
None
Discharge Plan
-
Patient Disposition: Home with Home Care
Discharge Diagnosis/Procedures: COVID 19 viral infection ,Generalized weakness
Condition: Fair
Diet: Regular
Activity: As tolerated
Driving Restrictions: No driving
Bathing Restrictions: OK to Shower
Referrals:
Bravo Isidro, DO [Family Provider] - in one week
Prescriptions:
New
dexamethasone 6 mg tablet
6 mg PO DAILY Qty: 5 0RF
Robitussin Cough-Chest Panda DM 10-200 mg capsule
1 tab-cap PO Q6H PRN (Reason: Cough) Qty: 30 0RF
tramadol 25 mg tablet
25 mg PO Q6H PRN (Reason: Pain) Qty: 14 0RF
Continued
metformin 500 MG tablet
500 mg PO BIDWMEAL
levothyroxine 100 MCG tablet
100 mcg PO DAILY
Xarelto 20 MG tablet
20 mg PO QPM
biotin 1 MG tablet
1 mg PO DAILY
melatonin 10 MG tablet
10 mg PO HS
furosemide 40 MG tablet
40 mg PO DAILY
losartan 50 MG tablet
100 mg PO HS
metoprolol tartrate 50 MG tablet
50 mg PO BID
hydralazine 25 MG tablet
50 mg PO BID
cholecalciferol (vitamin D3) [Vitamin D3] 125 mcg (5,000 unit) Tablet
125 mcg PO DAILY
vitamin K2 100 mcg Capsule
100 mcg PO DAILY
Celery Seed
3 tab PO DAILY
Marshmallow Root
1 tab PO DAILY
Roy 3
2 cap PO DAILY
Women Prebiotic With Cranberry
2 tab PO DAILY
keratin
1 dose PO DAILY
L-Glutathione
1 tab PO DAILY
milk thistle 500 mg Capsule
1,000 mg PO DAILY
simvastatin 10 mg Tablet
10 mg PO HS
therapeutic multivitamin Tablet
1 tab PO DAILY
zinc sulfate 50 mg zinc (220 mg) Tablet
50 mg PO DAILY
clotrimazole-betamethasone 1-0.05 % Cream
1 applic TOPICAL BIDPRN PRN (Reason: vaginal)
letrozole 2.5 mg Tablet
2.5 mg PO NOON
amiodarone 100 mg Tablet
100 mg PO NOON
PreserVision AREDS 4,296 mcg-226 mg-90 mg Capsule
1 cap PO DAILY
cyanocobalamin (vitamin B-12) 5,000 mcg Tablet, Sublingual
5,000 mcg SUBLINGUAL Q72H
CalMag Thins 200 mg calcium- 50 mg Tablet
1 tab PO HS
magnesium oxide 200 mg magnesium Tablet
200 mg PO DAILY
potassium chloride [Klor-Con M20] 20 MEQ tablet,ER particles/crystals
20 meq PO NOON
metoprolol tartrate 25 MG tablet
25 mg PO HS
Rx Instructions:
To be taken with evening dosage of 50mg
Discharge Orders:
Discharge Patient (As Directed); Ordered 10/23/23
Ordered By: Carter Miguel
Discharge Date and Time
Discharge Date/Time: 10/23/23 15:04
Print Language: [email or web address]
== END 2023-10-23 15:04 | disposition home health service (06) | DRG 178 ==
LOC: 2 NORTH 11:19
PROVIDERS: Emergency Medicine; ADMITTING PHYSICIAN Hospitalist; EMERGENCY PHYSICIAN Emergency Medicine; FAMILY PHYSICIAN Family Medicine
DX: U07.1 COVID-19 (principal); I13.0 Hypertensive heart and chronic kidney disease with heart failure and stage 1 through stage 4 chronic kidney disease, or unspecified chronic kidney disease; Z68.41 Body mass index [BMI] 40.0-44.9, adult; I50.32 Chronic diastolic (congestive) heart failure; E11.22 Type 2 diabetes mellitus with diabetic chronic kidney disease; I48.0 Paroxysmal atrial fibrillation; N18.31 Chronic kidney disease, stage 3a; C50.912 Malignant neoplasm of unspecified site of left female breast; E03.9 Hypothyroidism, unspecified; E66.9 Obesity, unspecified; E78.00 Pure hypercholesterolemia, unspecified; G47.33 Obstructive sleep apnea (adult) (pediatric); K21.9 Gastro-esophageal reflux disease without esophagitis; Z87.891 Personal history of nicotine dependence; Z79.890 Hormone replacement therapy; Z79.84 Long term (current) use of oral hypoglycemic drugs; Z79.01 Long term (current) use of anticoagulants; R53.1 Weakness
CPT/HCPCS: 71045; 80048; 80053; 82962; 83036; 83605; 85025; 87502; 87811; 93005; 96360; 96361; 97116; 97163; 97167; 99285

== ENCOUNTER → 2024-01-01 14:33 | Outpatient (REF) | payer OTHER, SELFPAY | LOC: RCS 14:33 | PROVIDERS: ATTENDING PHYSICIAN Nuclear Medicine Nuclear Cardiology; FAMILY PHYSICIAN Family Medicine | DX: I10 Essential (primary) hypertension (principal); I48.0 Paroxysmal atrial fibrillation; I08.0 Rheumatic disorders of both mitral and aortic valves; Z79.899 Other long term (current) drug therapy; I50.9 Heart failure, unspecified; Z85.3 Personal history of malignant neoplasm of breast | CPT/HCPCS: 93306 ==

== ENCOUNTER → 2024-06-25 14:29 | Outpatient (REF) | payer OTHER, SELFPAY | LOC: HWWDC 14:29 | PROVIDERS: ATTENDING PHYSICIAN Surgery; FAMILY PHYSICIAN Family Medicine | DX: Z12.31 Encounter for screening mammogram for malignant neoplasm of breast (principal) | CPT/HCPCS: 77063; 77067 ==

== ENCOUNTER → 2024-11-23 13:56 | Outpatient (REF) | payer OTHER, SELFPAY | LOC: RAD 13:56 | PROVIDERS: ATTENDING PHYSICIAN Nuclear Medicine Nuclear Cardiology; FAMILY PHYSICIAN Family Medicine | DX: I48.0 Paroxysmal atrial fibrillation (principal); Z79.899 Other long term (current) drug therapy | CPT/HCPCS: 71046 ==